=== PATIENT | female | born 1990 | race Two or more races ===

== ENCOUNTER 2022-07-15 10:19 | Inpatient (IN) | payer MEDICAID ==
[2022-07-15] MEDS ORDERED: Misoprostol 200 MCG Tab PO PRN (10:59)
[2022-07-15] MEDS ORDERED: Water For Irrigation,Sterile 1,000 ML Container IRR PRN (10:59)
[2022-07-15] MEDS ORDERED: Methylergonovine 0.2 MG/1 ML Amp IM PRN ×2 (10:59→13:01)
[2022-07-15] MEDS ORDERED: Carboprost Tromethamine 250 MCG/1 ML Amp IM PRN (10:59)
[2022-07-15] MEDS ORDERED: Tranexamic Acid 1,000 MG in Sodium Chloride 0.9% 100 ML IV PRN ×2 (10:59→13:01)
[2022-07-15] MEDS ORDERED: Sodium Chloride 0.9% 20 ML SDV IV PRN (10:59)
[2022-07-15] MEDS ORDERED: Butorphanol 1 MG/ML SDV IVPUSH PRN (10:59)
[2022-07-15] MEDS ORDERED: Sodium Chloride 0.9% 10 ML Syringe FLUSH PRN (10:59)
[2022-07-15] MEDS ORDERED: Lidocaine 1% 50 ML MDV INJECT PRN (10:59)
[2022-07-15] MEDS ORDERED: Sodium Chloride 0.9% 2.5 ML Syringe FLUSH PRN (10:59)
[2022-07-15] MEDS ORDERED: Oxytocin/0.9 % Sodium Chloride 30 UNIT/500 ML BAG IV SCH (11:00)
[2022-07-15] MEDS: Lactated Ringers 1,000 ML IV SCH ×2 (11:10→15:06)
[2022-07-15] MEDS ORDERED: Witch Hazel Medicated Pads 40/Jar TOP PRN (13:01)
[2022-07-15] MEDS ORDERED: Acetaminophen 500 MG Tab PO PRN ×2 (13:01)
[2022-07-15] MEDS ORDERED: Lanolin 100% Cream 7 GM Tube TOP PRN (13:01)
[2022-07-15] MEDS ORDERED: Docusate Sodium 100 MG Cap PO PRN (13:01)
[2022-07-15] MEDS ORDERED: Bisacodyl 10 MG Supp RECTAL PRN (13:01)
[2022-07-15] MEDS ORDERED: Ibuprofen 400 MG Tab PO PRN (13:01)
[2022-07-15] MEDS ORDERED: Benzocaine/Menthol 20%-0.5% Spray 78 GM Cannister TOP PRN (13:01)
[2022-07-15] MEDS: Ibuprofen 800 MG Tab PO PRN ×2 (13:46→20:07)
[2022-07-15 15:57] LABS: CARBON DIOXIDE,CO2 20.8 mmol/L (21.0-32.0); POTASSIUM,K 4.2 mmol/L (3.5-5.1)
[2022-07-15] MEDS ORDERED: Ondansetron 4 MG/2 ML SDV IVPUSH ONE (16:00)
[2022-07-16] MEDS ORDERED: Ibuprofen 800 MG Tab PO ONE ×3 (02:30→20:22)
[2022-07-16] MEDS ORDERED: Ibuprofen 800 MG Tab ONE (15:19)
[2022-07-16] MEDS ORDERED: Acetaminophen 500 MG Tab ONE (15:19)
[2022-07-16] MEDS ORDERED: Sodium Ferric Gluconate Cmplex 125 MG in Sodium Chloride 0.9% 100 ML IV ONE (20:22)
== END 2022-07-16 15:38 | disposition home or self-care (01) | DRG 807 ==
LOC: MW.OBCHECK 10:19 → MW.OB 10:22 → MW.OBCHECK 12:20 → MW.OB 12:25 → MW.ZCENSUS 07-16 13:50
PROVIDERS: ADMIT Obstetrics & Gynecology; ATTEND Obstetrics & Gynecology
PROC: 10E0XZZ Delivery of Products of Conception, External Approach (ICD-10-PCS; principal; 2022-07-15)
PROC: 10907ZC Drainage of Amniotic Fluid, Therapeutic from Products of Conception, Via Natural or Artificial Opening (ICD-10-PCS; 2022-07-15)
DX: O34.211 Maternal care for low transverse scar from previous cesarean delivery (principal); Z37.0 Single live birth; Z3A.39 39 weeks gestation of pregnancy; Z20.822 Contact with and (suspected) exposure to COVID-19
CPT/HCPCS: 36415; 59025; 59409; 80053; 82803; 85014; 85018; 85027; 85384; 85610; 85730; 86592; 86850; 86900; 86901; 86920; A9270-GY; J0595; J2001; J2405; J2590; J3490; J7120; U0002

== ENCOUNTER 2022-10-21 12:39 | Emergency (ER) | payer MEDICAID ==
[2022-10-21] MEDS ORDERED: Sodium Chloride 0.9% 1,000 ML IV ONE (13:03)
[2022-10-21] MEDS ORDERED: Alum Hydro/Mag Hydro/Simeth XS 15 ML, Metoclopramide 5 MG, Lidocaine 2% 5 ML PO ONE ×3 (13:28)
[2022-10-21 13:51] LABS: CARBON DIOXIDE,CO2 23.3 mmol/L (21.0-32.0); POTASSIUM,K 3.5 mmol/L (3.5-5.1)
[2022-10-21 13:53] LABS: CORONAVIRUS COVID-19 NAA NEGATIVE (NEGATIVE); INFLUENZA A NAA NEGATIVE (NEGATIVE); INFLUENZA B NAA NEGATIVE (NEGATIVE)
== END 2022-10-21 14:18 | disposition home or self-care (01) ==
LOC: MW.ED 12:39 → MERGE 12:39 → MW.ED 14:18
DX: N39.0 Urinary tract infection, site not specified (principal); Z79.899 Other long term (current) drug therapy; Z87.891 Personal history of nicotine dependence; Z86.16 Personal history of COVID-19; Z20.822 Contact with and (suspected) exposure to COVID-19
CPT/HCPCS: 0240U; 36415; 80053; 81001; 81025; 83690; 85025; 87086; 96360; 99284; A9270; J7030; 99283

== ENCOUNTER 2022-10-23 07:12 | Emergency (ER) | payer MEDICAID ==
[2022-10-23] MEDS ORDERED: Ondansetron 4 MG Tab.DIS PO ONE (07:16)
== END 2022-10-23 08:50 | disposition home or self-care (01) ==
LOC: MERGE 07:12 → MW.ED 07:12
DX: O99.63 Diseases of the digestive system complicating the puerperium (principal); K52.9 Noninfective gastroenteritis and colitis, unspecified; Z86.16 Personal history of COVID-19
CPT/HCPCS: 99283; A9270

== ENCOUNTER 2023-08-13 22:07 | Emergency (ER) | payer MEDICAID ==
[2023-08-14 00:11] LABS: BASOPHILS ABSOLUTE AUTO 0.04 K/uL (0.00-0.20); BASOPHILS PERCENT AUTO 0.5 % (0.0-1.0); EOSINOPHILS ABSOLUTE AUTO 0.16 K/uL (0.00-0.45); EOSINOPHILS PERCENT AUTO 1.8 % (0.0-6.0); HEMOGLOBIN 13.9 g/dL (12.0-16.0); IMMATURE GRAN ABSOLUTE AUTO 0.02 K/uL (0.00-0.05); IMMATURE GRAN PERCENT AUTO 0.2 % (0.0-0.4); LYMPHOCYTES ABSOLUTE AUTO 2.71 K/uL (1.00-4.80); LYMPHOCYTES PERCENT AUTO 31.3 % (24.0-44.0); MEAN CORPUSCULAR HEMOGLOBIN 30.2 pg (28.0-32.0); MEAN CORPUSCULAR HGB CONC 34.8 g/dL (32.0-36.0); MEAN CORPUSCULAR VOLUME 86.8 fL (83.0-99.0); MEAN PLATELET VOLUME 10.1 fL (9.4-12.3); MONOCYTES PERCENT AUTO 4.6 % (0.0-8.0); NEUTROPHILS ABSOLUTE AUTO 5.34 K/uL (1.80-7.70); NEUTROPHILS PERCENT AUTO 61.6 % (41.0-71.0); PLATELET COUNT,PLT 253 K/uL (150-400); RED BLOOD CELL COUNT 4.61 M/uL (4.10-5.30); WHITE BLOOD CELL COUNT,WBC 8.67 K/uL (3.9-11.3)
[2023-08-14 00:37] LABS: CREATININE 0.6 mg/dL (0.6-1.0); EST CRCL DRUG DOSING (CG) 116.24 mL/min; POTASSIUM,K 3.6 mmol/L (3.5-5.1)
[2023-08-14] MEDS ORDERED: Ketorolac 30 MG/ML SDV IM ONE (00:52)
[2023-08-14] MEDS ORDERED: Ketorolac 30 MG/ML SDV IVPUSH STA (01:11)
== END 2023-08-14 01:45 | disposition home or self-care (01) ==
LOC: MW.ED 22:07
DX: S06.0X0A Concussion without loss of consciousness, initial encounter (principal); M25.511 Pain in right shoulder; M25.512 Pain in left shoulder; W00.0XXA Fall on same level due to ice and snow, initial encounter; Y93.01 Activity, walking, marching and hiking
CPT/HCPCS: 36415; 70450; 71046; 80048; 84703; 85025; 96374; 99284; J1885

== ENCOUNTER 2025-04-06 08:21 | Emergency (ER) | payer SELFPAY ==
[2025-04-06 09:31] LABS: APPEARANCE,URINE SLT CLOUDY; BILIRUBIN,URINE NEGATIVE (NEGATIVE); COLOR,URINE YELLOW; GLUCOSE,URINE NEGATIVE (NEGATIVE); KETONES,URINE NEGATIVE (NEGATIVE); LEUKOCYTE ESTERASE,URINE NEGATIVE (NEGATIVE); NITRITE,URINE NEGATIVE (NEGATIVE); OCCULT BLOOD,URINE LARGE (NEGATIVE); PROTEIN,URINE NEGATIVE (NEGATIVE); UROBILINOGEN,URINE 0.2 EU/dL (<2.0)
[2025-04-06 09:52] LABS: BACTERIA,URINE FEW (NEGATIVE); EPITHELIAL CELLS,URINE FEW (NONE-FEW); WBC,URINE 0-4 (0-5/HPF)
[2025-04-06] MEDS ORDERED: Sodium Chloride 0.9% 2.5 ML Syringe FLUSH PRN (10:02)
[2025-04-06] MEDS ORDERED: Sodium Chloride 0.9% 10 ML Syringe FLUSH PRN (10:02)
[2025-04-06] MEDS ORDERED: Sodium Chloride 0.9% 20 ML SDV IV PRN (10:02)
[2025-04-06 10:10] LABS: HEMATOCRIT 35.8 % (37.0-47.0); HEMOGLOBIN 12.3 g/dL (12.0-16.0); MEAN CORPUSCULAR HEMOGLOBIN 29.8 pg (28.0-32.0); MEAN CORPUSCULAR HGB CONC 34.4 g/dL (32.0-36.0); MEAN CORPUSCULAR VOLUME 86.7 fL (83.0-99.0); MEAN PLATELET VOLUME 11.3 fL (9.4-12.3); PLATELET COUNT,PLT 213 K/uL (150-400); RED BLOOD CELL COUNT 4.13 M/uL (4.10-5.30); WHITE BLOOD CELL COUNT,WBC 7.76 K/uL (3.9-11.3)
[2025-04-06] MEDS: Ketorolac 30 MG/ML SDV IVPUSH ONE (10:12)
[2025-04-06] MEDS: Sodium Chloride 0.9% 1,000 ML IV ONE (10:12)
[2025-04-06 10:17] LABS: HCG QUALITATIVE,SERUM NEGATIVE (NEGATIVE)
[2025-04-06 10:21] LABS: A/G RATIO 1.1 (0.9-1.6); ALBUMIN 3.7 g/dL (3.4-5.0); BILIRUBIN TOTAL 0.5 mg/dL (0.2-1.0); CALCIUM 8.6 mg/dL (8.5-10.1); CARBON DIOXIDE,CO2 25.1 mmol/L (21.0-32.0); CREATININE 0.7 mg/dL (0.6-1.0); EST CRCL DRUG DOSING (CG) 97.79 mL/min; MAGNESIUM 1.9 mg/dL (1.8-2.4); POTASSIUM,K 3.8 mmol/L (3.5-5.1); PROTEIN TOTAL,TP 7.2 g/dL (6.4-8.2)
[2025-04-06 10:40] LABS: EOSINOPHILS ABSOLUTE MAN 0.16 K/uL (0.00-0.45); EOSINOPHILS PERCENT MAN 2 % (0-6); LYMPHOCYTES ABSOLUTE MAN 1.63 K/uL (1.00-4.80); LYMPHOCYTES PERCENT MAN 21 % (24-44); MONOCYTES ABSOLUTE MAN 0.54 K/uL (0.00-0.80); MONOCYTES PERCENT MAN 7 % (0-8); SEG NEUTROPHILS ABSOLUTE MAN 5.43 K/uL (1.80-7.70); SEG NEUTROPHILS PERCENT MAN 70 % (41-71)
== END 2025-04-06 14:15 | disposition home or self-care (01) ==
LOC: MW.ED 08:21
DX: R21 Rash and other nonspecific skin eruption (principal); Z79.899 Other long term (current) drug therapy
CPT/HCPCS: 36415; 80053; 81001; 81025; 82550; 83605; 83690; 83735; 84703; 85025; 86308; 86592; 86618; 86757; 87086; 87651; 96361; 96374; 99284; J1885; J7030; 99283